=== PATIENT | male | born 1960 | race Caucasian/White ===

== ENCOUNTER → 2017-05-13 | Outpatient (CLI) | payer OTHER ==
[~2017-05-13] MED LIST: B12 INJ.,1000 MCG/M IM; COPAXONE40 MG/ML SC; EFFIENT10 M2 PO; KLOR-CON M2020 ME1 PO; MODAFINIL200 MG PO; NAPROXEN SODIU500 MG PO; NITROGLYCERIN0.4 MG SL; OMEPRAZOLE40 MG PO; TAMSULOSIN HCL0.4 MG PO; TECFIDERA240 M1 PO; VESICARE10 MG PO; VITAMIN C500 M1 PO; VITAMIN D1000 IU PO; ZETIA10 MG PO
--- NOTE | 2017-05-13 19:01 | RADIOLOGY REPORT PS360 ---
PROCEDURE: 2-D M-mode and color Doppler study INDICATIONS FOR THE TEST: Chest pain COPD Heart Murmur Tobacco SmokingX Palpitations Fatigue Syncope Edema HypertensionXDiabetes Mellitus Rheumatic Fever SOBXDOE Obesity HyperlipidemiaX Family History HD Additional History CAD PATIENT INFORMATION HEIGHT: 71 WEIGHT:210 GENDER: Male B/P:156/81 2-D/M-MODE INTERPRETATION: 2-D MEASUREMENTS OBSERVED VALUES IN CMS Right Ventricular Dimension (RVDd) 2.6 Interventricular Septum (Thickness)(IVsd) 1.0 Left Ventricular Internal Dimensions(LVIDd) 5.7 Left Ventricular Posterior Wall (Thickness)(LVPWd) 1.1 Aortic Root 3.6 Aortic Cusp Separation 1.8 Left Atrial Dimensions (LAD) 3.9 2D 1. Left atrium is qualitatively mildly enlarged, left ventricle is normal size, there is mild concentric left ventricular hypertrophy present, visually estimated ejection fraction 45-50%, there is marked hypokinesis involving the basal septum , inferobasal and posterobasal wall. 2. The right atrium and right ventricle are mildly enlarged with normal contractility. 3. The aortic valve is minimally thickened and fibrosed. 4. The mitral and tricuspid valve leaflets are minimally thickened. 5. The pulmonic valve is poorly visualized. 6. No significant pericardial effusion noted. DOPPLER INTERROGATION: Doppler interrogation of the aortic, mitral and tricuspid valvular presence of mild mitral and tricuspid regurgitation, tricuspid and jet velocity insufficient for calculation of the right ventricular systolic pressure, grade 1 diastolic dysfunction seen with tissue Doppler evidence of raised left atrial pressure. CONCLUSION: 1. Mildly enlarged left atrium, normal left ventricular size, mild concentric left ventricular hypertrophy present, visually estimated ejection fraction 45-50% with multiple segmental wall motion abnormality described above, grade 1 diastolic dysfunction seen with tissue Doppler evidence of raised left atrial pressure. 2. Mild mitral and tricuspid regurgitation. 3. No significant pericardial effusion noted.
--- NOTE | 2017-05-15 11:26 | RADIOLOGY REPORT PS360 ---
SPECT MYOCARDIAL PERFUSION SCAN, REST AND STRESS: EXERCISE STRESS: [facility] REVIEW QGS EF AND WALL MOTION EVALUATION: QPS - PERFUSION EVALUATION: HISTORY: SOB, HTN, CAD PROCEDURE: Rest imaging performed after administration of10.44 millicuries Tc MIBI. Dose administered at12:20 p.m., with imaging thereafter. Stress imaging was then performed [id number] minutes 45 seconds of exercise stress. The patient achieved a heart [id number] with projected heart rate of139 . Resting BP156/81 with stress 170/90. At maximum exercise stress,30.5 millicuries Tc MIBI administered at1:45 p.m. with [id number] minutes thereafter. FINDINGS: Perfusion Evaluation: The single slice spect images as well as the [facility] bull's-eye data summary were reviewed. Wall Motion and Ejection Fraction Evaluation: Gated SPECT review and analysis used to evaluate these features. There is a 42 % left ventricular ejection fraction. There seems to be good wall motion Rest images reveal severe left ventricular dilatation with severely reduced activity throughout the inferior and lateral wall. Rest images reveal no significant change. Gated images reveal left ventricular dilatation with inferolateral akinesis with suggestion of aneurysmal dilatation IMPRESSION: Extensive transmural myocardial infarction involving the inferior and lateral wall without reversible ischemia accompanied by severe regional wall motion abnormality and probable aneurysmal dilatation. Clinical correlation is advised
--- NOTE | 2017-05-15 11:26 | RADIOLOGY REPORT PS360 ---
SPECT MYOCARDIAL PERFUSION SCAN, REST AND STRESS: EXERCISE STRESS: [facility] REVIEW QGS EF AND WALL MOTION EVALUATION: QPS - PERFUSION EVALUATION: HISTORY: SOB, HTN, CAD PROCEDURE: Rest imaging performed after administration of10.44 millicuries Tc MIBI. Dose administered at12:20 p.m., with imaging thereafter. Stress imaging was then performed [id number] minutes 45 seconds of exercise stress. The patient achieved a heart [id number] with projected heart rate of139 . Resting BP156/81 with stress 170/90. At maximum exercise stress,30.5 millicuries Tc MIBI administered at1:45 p.m. with minutes thereafter. FINDINGS: Perfusion Evaluation: The single slice spect images as well as the [facility] bull's-eye data summary were reviewed. Wall Motion and Ejection Fraction Evaluation: Gated SPECT review and analysis used to evaluate these features. There is a 42 % left ventricular ejection fraction. There seems to be good wall motion Rest images reveal severe left ventricular dilatation with severely reduced activity throughout the inferior and lateral wall. Rest images reveal no significant change. Gated images reveal left ventricular dilatation with inferolateral akinesis with suggestion of aneurysmal dilatation IMPRESSION: Extensive transmural myocardial infarction involving the inferior and lateral wall without reversible ischemia accompanied by severe regional wall motion abnormality and probable aneurysmal dilatation. Clinical correlation is advised
== END ==
LOC: RAD 12:00
DX: R06.09 Other forms of dyspnea (principal); I25.10 Atherosclerotic heart disease of native coronary artery without angina pectoris; I10 Essential (primary) hypertension; E78.5 Hyperlipidemia, unspecified; R01.1 Cardiac murmur, unspecified; Z95.5 Presence of coronary angioplasty implant and graft; Z72.0 Tobacco use
CPT/HCPCS: A9502

== ENCOUNTER → 2017-05-20 | Day surgery (SDC) | payer OTHER ==
[2017-05-20 08:07] LABS: HEMOGLOBIN 16.1 g/dL (14.1-18.0); LYMPH # 1.1 K/mm3 (0.7-4.5); LYMPH % 13.7 % (10-50)
[2017-05-20 08:11] LABS: BUN 14 mg/dL (7-18)
[2017-05-20 08:15] LABS: GFR (ESTIMATED) 77 ML/MIN (>60)
--- NOTE | 2017-05-20 10:36 | RADIOLOGY REPORT PS360 ---
CARDIAC CATHETERIZATION DATE OF CATHETERIZATION:05/20/2017 9:30 AM PROCEDURES: 1. Left heart catheterization 2. Left ventriculogram 3. Selective coronary angiogram 4. Drug-eluting stent deployment to the distal dominant right coronary artery extending into the posterior lateral ventricular branch 5. Angioplasty to the posterior descending artery INDICATION FOR TEST: 1. High risk abnormal Myoview 2. Coronary artery disease 3. Angina pectoris Informed consent was obtained prior to the procedure. COMPLICATIONS: None ESTIMATED BLOOD LOSS: Less than 10 ml. TECHNIQUE: One percent lidocaine used to anesthetize the right anterior aspect of the wrist. The right radial artery was accessed via the Seldinger technique. A 6 [place] sheath was placed in the right radial artery. 2.5 mg of verapamil, 800 mcg of nitroglycerin and 5000 U Heparin were given through the arterial sheath. The trap catheter was also used to perform left heart catheterization left ventriculogram and selective coronary angiogram. At the end of the diagnostic angiogram and additional 4000 units of heparin was administered intravenously to give an ACT out of range. An [place] right guide catheter was used intubate the dominant right coronary artery and a choice PT extra-support wire was placed into the posterior lateral ventricular branch. A 3 mm x 20 mm noncompliant balloon was deployed at 20 miryam from the posterior lateral ventricular branch back into the distal dominant right coronary artery. This predilate the stenosis and a 3 mm x 34 mm resolute Orange stent was deployed at 20 miryam reducing the stenosis. There is transient loss of the posterior descending artery. A 4 mm x 12 mm noncompliant balloon was placed in the proximal and mid segment of the stent and deployed at 20 miryam. A choice PT wire was in placed into the posterior descending artery and a 2 mm x 12 mm balloon was deployed at 20 miryam opening the struts into the PDA restoring MP-3 flow. At the end of procedure the apparatus was removed the sheath was removed good hemostasis was achieved using TR banding patient was transferred to the postop holding area in stable condition. MP-3 flow was present down the right coronary artery before and after the procedure. An ACT was pending at the time of dictation. ANGIOGRAPHIC RESULTS: 1. The left main artery has a proximal and distal eccentric 20% stenosis 2. The left anterior descending artery is proximally with 20% stenoses mid vessel 30% atheromatous debris and plaque. The first and second large diagonal arteries have 30% proximal mid vessel stenoses 3. The circumflex artery is a nondominant vessel and has proximal mid vessel 20-30% stenoses 4. The right coronary artery is a large dominant vessel and has proximal 20% mid vessel 40% distal eccentric 80% followed by an additional 90% stenosis immediately proximal to the PDA and PLVB. 5. The HSU ventriculogram reveals preserved ejection fraction estimated at 50% 6. The left ventricular end-diastolic pressure 10 mmHg IMPRESSION: 1. Severe to critical disease in the distal dominant right coronary 2. Successful stenting of the distal dominant right coronary artery into the proximal posterior lateral ventricular branch severe disease reduced to 0% with 1 drug-eluting stent 3. Successful angioplasty of the posterior descending artery 4. Preserved ejection fraction 5. Normal left ventricular end-diastolic pressure PLAN: 1. Continue Plavix and aspirin 2. Avoidance of tobacco products 3. Cardiac rehabilitation 4. Risk factor modification 5. LDL less than 55
[2017-05-20 14:38] VITALS: BP 150/80
== END ==
LOC: CATHLAB 07:36
PROVIDERS: Internal Medicine
PROC: B2111ZZ Fluoroscopy of Multiple Coronary Arteries using Low Osmolar Contrast (ICD-10-PCS; 2017-05-20)
PROC: B2151ZZ Fluoroscopy of Left Heart using Low Osmolar Contrast (ICD-10-PCS; 2017-05-20)
PROC: 027035Z Dilation of Coronary Artery, One Artery with Two Drug-eluting Intraluminal Devices, Percutaneous Approach (ICD-10-PCS; 2017-05-20)
PROC: 4A023N7 Measurement of Cardiac Sampling and Pressure, Left Heart, Percutaneous Approach (ICD-10-PCS; principal; 2017-05-20 08:30)
DX: I25.119 Atherosclerotic heart disease of native coronary artery with unspecified angina pectoris (principal); Z72.0 Tobacco use; R94.39 Abnormal result of other cardiovascular function study; Z95.5 Presence of coronary angioplasty implant and graft; R06.09 Other forms of dyspnea
CPT/HCPCS: C1725; C1769; C1876; J1644; Q9967